=== PATIENT | male | born 1980 | race African-American/Black ===

== ENCOUNTER 2022-07-01 19:04 | Emergency (ER) | payer SELFPAY ==
--- NOTE | 2022-07-01 19:14 | ED.DENTAL ---
HPI - Dental/Oral General Chief complaint: Dental/Oral Stated complaint: TOOTHACHE Time Seen by Provider: 07/01/22 19:14 Source: patient Mode of arrival: ambulatory History of Present Illness HPI Narrative: 42-year-old male presents with complaint of right-sided lower dental pain for 2-3 days. Reports history of broken teeth. Was post to get teeth pulled several months ago. Currently does not have any dental insurance but is getting put on his 's insurance in 3 days. Denies fever chills. Taking ibuprofen and Tylenol to treat his pain. All systems reviewed and negative except as noted above. Related Data Allergies Allergy/AdvReac Type Severity Reaction Status Date / Time No Known Allergies Allergy Verified 07/01/22 19:14 Review of Systems Review of Systems: CONSTITUTIONAL: Denies fever, chills, or sweats. EYES: Denies visual changes, redness, or discharge. ENT: Denies rhinorrhea, congestion, sore throat, or otalgia. Reports right lower dental pain. CARDIOVASCULAR: Denies chest pain, palpitations, or edema. RESPIRATORY: Denies cough or dyspnea. GASTROINTESTINAL: Denies abdominal pain, nausea, vomiting, or diarrhea. GENITOURINARY: Denies dysuria or hematuria. SKIN: Denies rash or itching. MUSCULOSKELETAL: Denies back pain, joint pain, or myalgia. NEUROLOGIC: Denies headache, numbness, or weakness. PSYCHIATRIC: Denies anxiety or depression. All other systems reviewed are negative, except as documented in HPI. PMFSH Comments At time of signature, agree with nursing past medical, surgical, social and family history. There is no relevant family history pertinent to the presenting complaint. Exam Narrative: GENERAL: This is a well-nourished, well-developed patient, in no apparent distress. HEAD: normocephalic, atraumatic. EYES: PERRL. Sclera clear/white. Vision is grossly intact. EARS: External ears normal NOSE: External nose normal . MOUTH: Tooth number 29, 30, 31 broken, discolored brownish with erythema swelling to surrounding gums. NECK: Neck supple, non-tender without lymphadenopathy, masses or thyromegaly. CARDIOVASCULAR: Regular rate and rhythm without murmurs, gallops, or rubs. RESPIRATORY: Clear to auscultation. Breath sounds equal bilaterally. No wheezes, rales, or rhonchi. SKIN: warm, Dry, intact with no suspicious lesions or rash, good texture and turgor. NEURO: awake, alert, and oriented to person, place and time. There were no obvious focal neurologic abnormalities. EXTREMITIES: No joint tenderness, effusion, or edema noted. Course Course Level of Care: Express Care Visit Vital Signs Vital signs: Vital Signs Temperature 36.9 C 07/01/22 19:17 Pulse Rate 77 07/01/22 19:17 Respiratory Rate 16 07/01/22 19:17 Blood Pressure 136/86 07/01/22 19:17 Pulse Oximetry 100 07/01/22 19:17 Temperature 36.9 C 07/01/22 19:17 Pulse Rate 77 07/01/22 19:17 Respiratory Rate 16 07/01/22 19:17 Blood Pressure 136/86 07/01/22 19:17 Pulse Oximetry 100 07/01/22 19:17 Reviewed MDM - Dental/Oral MDM Narrative Medical decision making narrative: Patient is aware of diagnosis, understands and agrees to treatment plan. Anticipatory guidance given. Patient agrees to follow-up as directed and is aware of reasons to seek care at the emergency department. Portions of this record may have been created with voice recognition software Discharge Plan Discharge Clinical Impression: Dental infection Patient Disposition: Home, Self-Care Condition: Stable Instructions: Antibiotic Form, Toothache (ED) Additional Instructions: Take antibiotic as prescribed. Continue to take ibuprofen Tylenol as needed for pain. Follow-up with dentist at next available appointment. If you have severe pain go to the ER. Prescriptions: New amoxicillin 875 mg tablet 875 mg PO Q12H 10 Days Qty: 20 0RF lidocaine HCl [Lidocaine Viscous] 2 % solution 1 applic mucous membrane Q4-6H PA
[2022-07-01 19:17] VITALS: BP 136/86; PULSE 77; RESP 16; TEMP 36.9; O2SAT 100
== END 2022-07-01 19:25 | disposition home or self-care (01) ==
PROVIDERS: Emergency Provider Nurse Practitioner Family
DX: K04.7 Periapical abscess without sinus (principal)
CPT/HCPCS: 99213; G0463

== ENCOUNTER 2022-11-03 08:34 | Emergency (ER) | payer OTHER, SELFPAY ==
--- NOTE | 2022-11-03 08:39 | ED.URI ---
HPI - URI/Sore Throat General Chief Complaint: Upper Respiratory Infection Stated Complaint: cough, congestion,fever Time Seen by Provider: 11/03/22 08:39 Source: patient and RN notes reviewed History of Present Illness HPI Narrative: Patient is a 42-year-old male who presents to urgent care with complaints of cough, congestion, subjective fever and sinus pressure. Patient states he has also had headaches. States symptoms started on Monday and he had a negative COVID test last night. Patient states he did lose his sense of smell and taste last night. Patient has had issues with sinuses in the past but has never had any sinus surgeries. Denies any shortness of breath or cough. No other acute complaints. No acute distress noted. Patient aware of the plan of care. Some parts of this dictation were generated by voice recognition software and may contain typographical and/or grammatical inaccuracies. Related Data Allergies Allergy/AdvReac Type Severity Reaction Status Date / Time No Known Allergies Allergy Verified 11/03/22 09:31 Review of Systems Review of Systems: CONSTITUTIONAL: Denies fever, chills, or sweats. EYES: Denies visual changes, redness, or discharge. ENT: Reports of nasal congestion, postnasal drip, sinus pressure, loss of taste/smell CARDIOVASCULAR: Denies chest pain, palpitations, or edema. RESPIRATORY: Denies cough or dyspnea. GASTROINTESTINAL: Denies abdominal pain, nausea, vomiting, or diarrhea. GENITOURINARY: Denies dysuria or hematuria. SKIN: Denies rash or itching. MUSCULOSKELETAL: Denies back pain, joint pain, or myalgia. NEUROLOGIC: Denies headache, numbness, or weakness. All other systems reviewed are negative, except as documented in HPI. PMFSH Comments At the time of my signature, I reviewed and agree with the nursing past medical, surgical, social, and family history. There is no relevant family history pertinent to the patient complaint. Exam Narrative: GENERAL: This is a well-nourished, well-developed patient, in no apparent distress. HEAD: normocephalic, atraumatic. EYES: PERRL. Sclera clear/white. Vision is grossly intact. EARS: External ears normal, auditory canals clear and without drainage, TMs normal without perforation. Hearing grossly intact. NOSE: External nose normal with no obvious nasal discharge. Mild bilateral erythema nares with mild tuberosity edema moderate clear rhinorrhea THROAT: Mucous membranes moist, posterior pharynx clear. Moderate postnasal drainage NECK: Neck supple CARDIOVASCULAR: Regular rate and rhythm RESPIRATORY: Clear to auscultation. Breath sounds equal bilaterally. No wheezes, rales, or rhonchi. SKIN: warm, intact with no suspicious lesions or rash, good texture and turgor. NEURO: awake, alert, and oriented to person, place and time. There were no obvious focal neurologic abnormalities. EXTREMITIES: No clubbing, cyanosis, or edema. Course Course Level of Care: Express Care Visit Vital Signs Vital signs: Vital Signs Temperature 98 F 11/03/22 09:14 Pulse Rate 80 11/03/22 09:14 Respiratory Rate 16 11/03/22 09:14 Blood Pressure 134/95 H 11/03/22 09:14 Pulse Oximetry 98 11/03/22 09:14 Temperature 98 F 11/03/22 09:14 Pulse Rate 80 11/03/22 09:14 Respiratory Rate 16 11/03/22 09:14 Blood Pressure 134/95 H 11/03/22 09:14 Pulse Oximetry 98 11/03/22 09:14 Reviewed- Patient is informed that they may have pre-hypertension or hypertension based on a blood pressure reading in the department. I recommend the patient call the primary care provider listed on their discharge instructions or a physician of their choice this week to arrange follow-up for further evaluation of possible pre-hypertension or hypertension. MDM - URI/Sore Throat MDM Narrative Medical decision making narrative: Advised patient to complete the steroid regimen as prescribed. Be sure to eat and drink with medication. Use a daily antihistamine such as Zyrtec
[2022-11-03 09:14] VITALS: BP 134/95; PULSE 80; RESP 16; TEMP 36.6; O2SAT 98
== END 2022-11-03 09:58 | disposition home or self-care (01) ==
PROVIDERS: Emergency Provider Nurse Practitioner Family
DX: J32.9 Chronic sinusitis, unspecified (principal)
CPT/HCPCS: 99213; G0463

== ENCOUNTER 2023-03-02 09:34 | Emergency (ER) | payer OTHER, SELFPAY ==
[2023-03-02 09:53] VITALS: BP 133/90; PULSE 66; RESP 18; TEMP 36; O2SAT 100
--- NOTE | 2023-03-02 10:15 | ED.GENADULT ---
HPI - General Adult General Chief complaint: Chest Pain Stated complaint: Burning in your chest Time Seen by Provider: 03/02/23 10:07 Source: patient and RN notes reviewed Mode of arrival: ambulatory Limitations: no limitations History of Present Illness HPI narrative: Patient presents today complaining of acid reflux symptoms that started yesterday morning and has persisted to this morning. His gave him and unknown pill this morning around 7:00 a.m. and patient states it has started to take effect and he is feeling better. He does have history of acid reflux, but does not take any daily control medication. Denies any abdominal pain, nausea or vomiting. He did eat meat loaf last night for dinner. He called into work today and is requesting a work note. Related Data Home Medications Medication Instructions Recorded Confirmed No Home Medications 03/02/23 03/02/23 Allergies Allergy/AdvReac Type Severity Reaction Status Date / Time No Known Allergies Allergy Verified 11/03/22 09:31 Review of Systems Review of Systems: CONSTITUTIONAL: Denies body aches, fever, chills, or sweats. EYES: Denies visual changes, redness, or discharge. ENT: Denies rhinorrhea, congestion, sore throat, or otalgia. CARDIOVASCULAR: Denies chest pain, palpitations, or edema. RESPIRATORY: Denies cough or dyspnea. GASTROINTESTINAL: Denies abdominal pain, nausea, vomiting, or diarrhea.+ acid reflux pain GENITOURINARY: Denies dysuria or hematuria. SKIN: Denies rash, itching, or wounds. MUSCULOSKELETAL: Denies back pain, joint pain, or myalgia. NEUROLOGIC: Denies headache, numbness, tingling, or weakness. PSYCH: Denies depression or anxiety. PMFSH Comments At time of signature, I have reviewed and agree with nursing past medical, surgical, social and family history unless otherwise noted. Please see nursing chart for further information. There is no relevant family history pertinent to the presenting complaint Exam Narrative: GENERAL: Well-appearing, well-nourished, and in no acute distress. HEAD: Normocephalic, atraumatic. EYES: EOMI. No redness or drainage. Conjunctivae normal. ENT: Mucous membranes pink and moist. NECK: Normal AROM. CHEST: No respiratory distress. Clear to auscultation. HEART: Regular rate and rhythm. No murmur appreciated. Normal peripheral pulses. ABDOMEN: Soft, nontender, nondistended, normal active bowel sounds. EXTREMITIES: Normal range of motion. No edema. SKIN: Warm, dry, no rash. Capillary refill normal. Normal skin turgor. NEURO: No focal deficits. Alert and oriented x3. Gait steady. PSYCH: Normal affect. No signs of depression or anxiety. Course Course Level of Care: Express Care Visit Vital Signs Vital signs: Vital Signs Temperature 96.8 F L 03/02/23 09:53 Pulse Rate 66 03/02/23 09:53 Respiratory Rate 18 03/02/23 09:53 Blood Pressure 133/90 03/02/23 09:53 Pulse Oximetry 100 03/02/23 09:53 Oxygen Delivery Room Air 03/02/23 09:53 Temperature 96.8 F L 03/02/23 09:53 Pulse Rate 66 03/02/23 09:53 Respiratory Rate 18 03/02/23 09:53 Blood Pressure 133/90 03/02/23 09:53 Pulse Oximetry 100 03/02/23 09:53 Oxygen Delivery Room Air 03/02/23 09:53 Reviewed. Pt has been instructed to follow up with his PCP regarding his elevated blood pressure today. Medical Decision Making MDM Narrative Medical decision making narrative: Patient's symptoms are consistent with acid reflux. Suggested he start omeprazole daily for the next 7-10 days then reassess symptoms. Discussed dietary changes as well. No prescription medications indicated at this time. Anticipatory guidance given. Differential Diagnosis Differential Diagnosis: Acid reflux, esophagitis, gastritis Vital Signs Vital Signs: Vital Signs Temperature 96.8 F L 03/02/23 09:53 Pulse Rate 66 03/02/23 09:53 Respiratory Rate 18 03/02/23 09:53 Blood Pressure 133/90 03/02/23 09:53
== END 2023-03-02 10:26 | disposition home or self-care (01) ==
PROVIDERS: Emergency Provider Nurse Practitioner
DX: K21.9 Gastro-esophageal reflux disease without esophagitis (principal)
CPT/HCPCS: 99211; G0463

== ENCOUNTER 2023-07-10 08:51 | Emergency (ER) | payer OTHER, SELFPAY ==
--- NOTE | 2023-07-10 08:54 | ED.ABDPAIN ---
HPI - Abdominal Pain General Chief Complaint: Abdominal Pain Stated Complaint: Stomach pain Time Seen by Provider: 07/10/23 08:53 Source: patient Mode of arrival: ambulatory Limitations: no limitations History of Present Illness HPI narrative: Jose is a 43-year-old male patient presenting to the clinic today with complaints of nausea, abdominal cramping, and diarrhea that started this morning. He reports he works for a [employer] and had to call in and is needing a work note. He reports that his symptoms have now resolved. He denies any fever or chills Related Data Home Medications Medication Instructions Recorded Confirmed No Home Medications 03/02/23 03/02/23 Allergies Allergy/AdvReac Type Severity Reaction Status Date / Time No Known Allergies Allergy Verified 11/03/22 09:31 Review of Systems Review of Systems: Pertinent positives per HPI. Patient denies any fever, chills, rash, headache, visual changes, dizziness, cough, runny nose, sore throat, shortness of breath, chest pain, palpitations, nausea, vomiting, diarrhea, constipation, or any urinary issues. PMFSH Comments At the time of my signature, I reviewed and agree with the nursing past medical, surgical, social, and family history. There is no relevant family history pertinent to the patient complaint. Exam Narrative: General: Well-developed, well nourished, in no apparent distress. Head: Normocephalic, atraumatic. Cardio: Regular rate and rhythm, s1 and s2 normal, no murmur appreciated. Resp: Clear to auscultation bilaterally, no rhonchi, rales, wheezing or rubs. Abdomen: Soft, pliable, bowel sounds present in all quadrants, non-tender to palpation, no organomegly, no CVAT tenderness. Course Course Emergency Course: Portions of this record may have been created with voice recognition software. Level of Care: Express Care Visit Vital Signs Vital signs: Vital signs reviewed MDM - Abdominal Pain MDM Narrative Medical decision making narrative: At the time of visit patient is resting comfortably on the exam table. I suspect patient has gastroenteritis. Supportive measures were discussed with the patient he voiced understanding discharge instructions and agrees to treatment plan. Work note was given Differential Diagnosis Differential diagnosis: Likely abdominal pain, acute appendicitis, calculus of kidney, constipation, diverticulitis, gastroenteritis, pancreatitis and small bowel obstruction Discharge Plan Discharge Clinical Impression: Gastroenteritis Patient Disposition: Home, Self-Care Condition: Stable Instructions: Antibiotic Form, Gastroenteritis (ED), Abdominal Pain (ED) Additional Instructions: Increase fluids and stay well hydrated Tylenol/motrin for pain/fever BRAT diet for diarrhea Clear liquids x 24 hours then advance as tolerated for nausea/vomiting Go to the ED if you develop a worsening in your condition- high fever not controlled by Tylenol or Motrin, dehydration, weakness, lethargy, shortness of breath, or chest pain. Follow up with your PCP in 3-5 days if symptoms persist. Prescriptions: No Action No Home Medications Follow-up/Referrals: UNKNOWN,DOCTOR [Non-Staff] - Stand Alone Forms: Work/School Release IP Time of Disposition: 09:04 Quality NIHSS Nursing Documentation ED NIHSS nursing documentation: reviewed/agree
[2023-07-10 09:03] VITALS: BP 133/84; PULSE 65; RESP 16; TEMP 36.6; O2SAT 100
== END 2023-07-10 09:07 | disposition home or self-care (01) ==
PROVIDERS: Emergency Provider Nurse Practitioner Family
DX: K52.9 Noninfective gastroenteritis and colitis, unspecified (principal)
CPT/HCPCS: 99211; G0463

== ENCOUNTER 2023-10-31 09:18 | Emergency (ER) | payer OTHER, SELFPAY ==
--- NOTE | 2023-10-31 09:21 | ED.URI ---
HPI - URI/Sore Throat General Chief Complaint: Upper Respiratory Infection Stated Complaint: Congestion/Sore Throat/Headache Source: patient and RN notes reviewed Mode of arrival: ambulatory Limitations: no limitations History of Present Illness HPI Narrative: Patient is a 43-year-old male who presents to the [facility] with complaints congestion, headache, and generalized body aches starting yesterday. Patient also endorses a mild sore throat. States that he has had an infrequent nonproductive cough. He denies chest pain or shortness of breath. Denies abdominal pain, nausea, vomiting, diarrhea. He is unsure of any known sick contacts. Patient states that he took a COVID test yesterday and thought the result was negative but looked at it later and thought he saw a faint line. He was unsure of the result so wanted to get retested. Related Data Allergies Allergy/AdvReac Type Severity Reaction Status Date / Time No Known Allergies Allergy Verified 10/31/23 09:35 Review of Systems Review of Systems: CONSTITUTIONAL: Denies fever, chills, or sweats. EYES: Denies visual changes, redness, or discharge. ENT: Denies otalgia but reports sore throat. Reports nasal congestion. CARDIOVASCULAR: Denies chest pain, palpitations, or edema. RESPIRATORY: Reports cough but denies dyspnea. GASTROINTESTINAL: Denies abdominal pain, nausea, vomiting, or diarrhea. GENITOURINARY: Denies dysuria or hematuria. SKIN: Denies rash or itching. MUSCULOSKELETAL: Denies back pain, joint pain, but repors myalgia. NEUROLOGIC: Denies numbness or weakness. Reports headache. Pertinent positives per HPI. PMFSH Comments At the time of my signature, I reviewed and agree with the nursing past medical, surgical, social, and family history. There is no relevant family history pertinent to the patient complaint. Exam Narrative: GENERAL: This is a well-nourished, well-developed patient, in no apparent distress. HEAD: normocephalic, atraumatic. EYES: Sclera clear/white. Vision is grossly intact. EARS: External ears normal. Hearing grossly intact. NOSE: External nose normal. + congestion. THROAT: Mucous membranes moist, posterior pharynx erythema without exudate or ulceration. NECK: Neck supple, non-tender without lymphadenopathy, masses or thyromegaly. CARDIOVASCULAR: Regular rate and rhythm without murmurs, gallops, or rubs. RESPIRATORY: Clear to auscultation. Breath sounds equal bilaterally. No wheezes, rales, or rhonchi. GASTROINTESTINAL: Abdomen soft, non-tender, nondistended. Bowel sounds are active. No hepato-splenomegaly, or palpable masses. No guarding. SKIN: warm, intact with no suspicious lesions or rash, good texture and turgor. NEURO: awake, alert, and oriented to person, place and time. There were no obvious focal neurologic abnormalities. Course Course Level of Care: Express Care Visit Vital Signs Vital signs: Vital Signs Temperature 97.8 F 10/31/23 09:40 Pulse Rate 81 10/31/23 09:40 Respiratory Rate 16 10/31/23 09:40 Blood Pressure 125/91 H 10/31/23 09:40 Pulse Oximetry 98 10/31/23 09:40 Temperature 97.8 F 10/31/23 09:40 Pulse Rate 81 10/31/23 09:40 Respiratory Rate 16 10/31/23 09:40 Blood Pressure 125/91 H 10/31/23 09:40 Pulse Oximetry 98 10/31/23 09:40 Reviewed MDM - URI/Sore Throat MDM Narrative Medical decision making narrative: After 24 hours on antibiotics throw tooth brush away and start using a new one. Increase your Vitamin C. Do not share drinks. Take Motrin alternating with Tylenol for pain and/or fever alternating every 4 hours. Increase fluids, avoid caffeine. Take a probiotic daily or eat a low sugar yogurt while taking the antibiotic. Follow up with Primary provider if not getting better this week Differential Diagnosis Differential diagnosis: Likely upper respiratory infection, viral infection, influenza, pharyngitis and other (covid, strep) Lab Data Attestation: I rev
[2023-10-31 09:40] VITALS: BP 125/91; PULSE 81; RESP 16; TEMP 36.6; O2SAT 98
== END 2023-10-31 09:55 | disposition home or self-care (01) ==
PROVIDERS: Emergency Provider Nurse Practitioner
DX: J02.0 Streptococcal pharyngitis (principal); Z20.822 Contact with and (suspected) exposure to COVID-19; I10 Essential (primary) hypertension
CPT/HCPCS: 87426; 87804; 87880; 99213; G0463

== ENCOUNTER 2024-07-23 08:18 | Emergency (ER) | payer OTHER, SELFPAY ==
--- NOTE | 2024-07-23 08:26 | ED_ITS ---
HPI - URI/Sore Throat General Chief Complaint: Upper Respiratory Infection Stated Complaint: SORE THROAT/SINUS CONGESTION/HEADACHE Time Seen by Provider: 07/23/24 08:32 Source: patient, RN notes reviewed and old records reviewed Mode of arrival: ambulatory Limitations: no limitations History of Present Illness HPI Narrative: 44 year old male who presents to [facility] care with complaints of sinus congestion with drainage sneezing, some dry cough, headache, and sore throat since yesterday evening with painful swallowing. Patient reports no fevers, chills or body aches. He states no known exposure to anyone who is ill. He reports that he has taken some Benadryl for his symptoms MD elicited complaint: sore throat, rhinorrhea, nasal congestion and other (headache) Pertinent past history: other (strep throat) Onset (ago): day(s) (since yesterday) Consistency: constant Pain scale (0-10): 5 Able to tolerate fluids by mouth: Yes Exacerbating factors: swallowing Treatments prior to arrival: other (Benadryl) Related Data Allergies Allergy/AdvReac Type Severity Reaction Status Date / Time No Known Allergies Allergy Verified 07/23/24 08:26 Review of Systems Review of Systems: CONSTITUTIONAL: Denies malaise, chills, sweats, or fever. EYES: Denies visual changes, redness, or discharge. ENT: Reports rhinorrhea, congestion, sinus pain,no otalgia and positive for sore throat. CARDIOVASCULAR: Denies chest pain, palpitations, or edema. RESPIRATORY: Reports dry cough.? Denies dyspnea. GASTROINTESTINAL: Denies abdominal pain, nausea, vomiting, diarrhea SKIN: Denies rash or itching. MUSCULOSKELETAL: Denies myalgia. NEUROLOGIC:reports frontal headache. All systems reviewed & are unremarkable except as noted in HPI and below [facility] Past Medical History Medical History (Updated 07/23/24 @ 08:46 by Peri Sams NP) Strep pharyngitis Social History Social History (Updated 07/23/24 @ 08:38 by Peri Sams NP) Smoking status: Never smoker Substance use type: does not use Living arrangements: with family Gender identity (if verbalized by the patient): Male Comments At time of signature, agree with nursing past medical, surgical, social and family history. There is no relevant family history pertinent to the presenting complaint Exam Narrative: GENERAL: Well-appearing, well-nourished, and in no acute distress. HEAD: Normocephalic EYES: PERRLA, conjunctivae clear ENT: Nares clear, turbinates edematous and erythematous, clear discharge. Mucous membranes moist. TM pearly felix with dull light reflex bilaterally; no tragal tenderness. Oropharynx erythematous without lesions. Tonsils red enlarged and without exudate, no drooling, no hoarseness, no trismus, uvula midline.post nasal drainage NECK: Supple. lymphadenopathy CHEST: Clear to auscultation, breath sounds equal. No wheezing, rhonchi, rales, or stridor. No respiratory distress, speaks in full sentences. cough, SAO2 99% on room air HEART: Regular rate and rhythm. No murmur heard. SKIN: Warm, dry, no rash. NEURO: Alert and oriented x3. PSYCH: Normal mood and affect Course Course Emergency Course: Patient is aware of diagnosis, understands and agrees to treatment plan.? Anticipatory guidance given.? Patient agrees to follow-up as directed and is aware of reasons to seek care at the emergency department. Portions of this record may have been created with voice recognition software Level of Care: Express Care Visit Vital Signs Vital signs: Reviewed MDM - URI/Sore Throat MDM Narrative Medical decision making narrative: Differential diagnosis considered: Aly virus, strep pharyngitis, allergic rhinitis, upper respiratory tract infection, sinusitis, rhinosinusitis, nasopharyngitis. viral pharyngitis, otitis media, otitis externa, pneumonia, bronchitis, viral cough syndrome, viral syndrome, and influenza.? Exam findings show no acute concerns or changes; patient is non-toxic appearing and is in no distress.? Patient is appropriate for outpatient treatment and follow-up. Differential Diagnosis Differential diagnosis: Likely upper respiratory infection, otitis media, sinusitis, viral infection, pharyngitis and other (strep pharyngitis, tonsillitis) Medical Records Attestation: I reviewed the patient's medical records. Lab Data Attestation: I reviewed the patient's lab results. Lab results narrative: strep screen negative, culture sent Critical Care Time Critical Care Time Critical Care Time: No Discharge Plan Discharge Clinical Impression: Tonsillitis Patient Disposition: Home, Self-Care Condition: Stable Instructions: Antibiotic Form, Tonsillitis (ED) Additional Instructions: Increase fluids especially juices and water [id number] cough and cold medicine of your choice for your symptoms Zyrtec Claritin or Monika daily include Coricidin brand decongestant heat to the face 20-30 minutes 4-6 times a day for pain Salt water gargles, throat lozenges or throat sprays as desired Antibiotic as directed--finished the medication If your symptoms persist, change or worsen significantly before you can contact your personal physician then please, without delay, go to the emergency department for further evaluation. Follow-up with PCP in 7-10 days or sooner if needed Follow up with PCP soon in regards to your blood pressure which is elevated above threshold for referral. Blood pressure above 120/80 may indicate pre- hypertension. diastolic blood pressure elevated 122/94 Tylenol or Ibuprofen for any fever or pain Prescriptions: New amoxicillin 500 mg capsule 500 mg PO Q12H Qty: 20 0RF Rx Instructions: take all of prescription Follow-up/Referrals: PHYSICIAN,BUSINESS MANAGEMENT INTERN [Primary Care Provider] - Stand Alone Forms: Work/School Release IP Time of Disposition: 08:47 [place] Coma Scale Eyes: Open Verbal: Oriented and Alert Motor: Follows Commands Laura Coma Total Score: 15
[2024-07-23 08:27] VITALS: BP 122/94; PULSE 72; RESP 18; TEMP 36.5; O2SAT 99
[2024-07-23 08:30] VITALS: BP 122/94; PULSE 72; RESP 18; TEMP 36.5; O2SAT 99
[2024-07-23 08:48] LABS: EDSTREPNEGPOS1 Negative (Negative)
== END 2024-07-23 08:50 | disposition home or self-care (01) ==
PROVIDERS: Emergency Provider Registered Nurse
DX: J03.90 Acute tonsillitis, unspecified (principal)
CPT/HCPCS: 87081; 87880; 99213; G0463